=== PATIENT | male | born 1935 | race Hispanic/Latino ===

== ENCOUNTER → 2017-07-01 | Outpatient (CLI) | payer OTHER | END | disposition home or self-care (01) | LOC: OIH 10:10 | PROVIDERS: ATTEND Family Medicine | DX: J44.9 Chronic obstructive pulmonary disease, unspecified (principal); I10 Essential (primary) hypertension | CPT/HCPCS: 71046 ==

== ENCOUNTER → 2017-11-03 | Outpatient (CLI) | payer OTHER ==
[2017-11-03 11:26] LABS: INR 2.77 (0.85-1.15); PARTIAL THROMBOPLASTIN TIME 40.3 SEC (26.3-35.5); PROTHROMBIN TIME 28.5 SEC (9.6-11.6)
== END | disposition home or self-care (01) ==
LOC: LAB 10:23
PROVIDERS: ATTEND Family Medicine
DX: I13.0 Hypertensive heart and chronic kidney disease with heart failure and stage 1 through stage 4 chronic kidney disease, or unspecified chronic kidney disease (principal); I48.91 Unspecified atrial fibrillation; D68.9 Coagulation defect, unspecified
CPT/HCPCS: 36415; 85610; 85730

== ENCOUNTER 2018-03-08 20:18 | Emergency (ER) | payer OTHER ==
[~2018-03-08 20:18] MED LIST: ASPI-555 PO; DIGO125T87 PO; FOLI1TAB15 PO; FURO20TA4 PO; LOSA50TA25 PO; METO50TA18 PO; PRAV10TA39 PO; TAMS0.4C32 PO; WARF4TAB72 PO; WARF6TAB49 PO
[2018-03-08 20:44] LABS: BASOPHILS % (AUTO) 0.7 % (0.0-5.0); EOSINOPHILS % (AUTO) 1.8 % (0.0-8.0); HEMATOCRIT 36.5 % (42-54); LYMPHOCYTES % (AUTO) 38.3 % (21.0-51.0); MEAN CORPUSCULAR HEMOGLOBIN 31.3 pg (27.0-33.0); MEAN CORPUSCULAR HGB CONC 34.6 g/dL (32.0-36.0); MEAN CORPUSCULAR VOLUME 90.5 fL (79-99); NEUTROPHILS % (AUTO) 52.2 % (40.0-77.0); PLATELET COUNT (AUTO) 173 K/uL (130-400); RED BLOOD CELL COUNT(AUTO) 4.03 MIL/uL (4.50-6.20); RED CELL DISTRIBUTION WIDTH 14.7 % (11.0-15.5); WHITE BLOOD COUNT (AUTO) 6.2 K/uL (4.8-10.8)
[2018-03-08 20:53] LABS: CREATININE 1.6 mg/dL (0.5-1.5); POTASSIUM 3.7 mmol/L (3.5-5.1)
[2018-03-08 20:56] LABS: PARTIAL THROMBOPLASTIN TIME 36.6 SEC (26.3-35.5); PROTHROMBIN TIME 20.7 SEC (9.6-11.6)
[2018-03-08 21:03] LABS: ALBUMIN 4.2 g/dL (3.5-5.0); BILIRUBIN,TOTAL 0.8 mg/dL (0.2-1.0); TOTAL PROTEIN, SERUM 8.5 g/dL (6.0-8.3)
== END 2018-03-09 02:10 | disposition home or self-care (01) ==
LOC: EDH 20:18
DX: R07.9 Chest pain, unspecified (principal); I11.0 Hypertensive heart disease with heart failure; I50.9 Heart failure, unspecified; I48.91 Unspecified atrial fibrillation; E78.5 Hyperlipidemia, unspecified; Z98.890 Other specified postprocedural states
CPT/HCPCS: 36415; 71045; 80053; 82550; 83874; 84484; 85025; 85610; 85730; 93005; 94761

== ENCOUNTER 2018-04-06 23:26 | Emergency (ER) | payer OTHER | END 2018-04-07 00:48 | disposition home or self-care (01) | LOC: EDH 23:26 | DX: S61.411A Laceration without foreign body of right hand, initial encounter (principal); E78.5 Hyperlipidemia, unspecified; I48.91 Unspecified atrial fibrillation; I11.0 Hypertensive heart disease with heart failure; I50.9 Heart failure, unspecified; Z95.818 Presence of other cardiac implants and grafts; W26.8XXA Contact with other sharp object(s), not elsewhere classified, initial encounter; Y93.89 Activity, other specified; Y92.098 Other place in other non-institutional residence as the place of occurrence of the external cause; Y99.8 Other external cause status | CPT/HCPCS: 99282 ==

== ENCOUNTER 2018-04-07 09:33 | Emergency (ER) | payer OTHER ==
[2018-04-07] MEDS ORDERED: ACETAMINOPHEN 325 MG TAB ONE (10:01)
== END 2018-04-07 10:15 | disposition home or self-care (01) ==
LOC: EDH 09:33
DX: S61.411A Laceration without foreign body of right hand, initial encounter (principal); I48.91 Unspecified atrial fibrillation; I11.0 Hypertensive heart disease with heart failure; I50.9 Heart failure, unspecified; E78.5 Hyperlipidemia, unspecified; X58.XXXA Exposure to other specified factors, initial encounter; Y93.89 Activity, other specified; Y92.89 Other specified places as the place of occurrence of the external cause; Y99.8 Other external cause status
CPT/HCPCS: 99281

== ENCOUNTER 2018-04-08 08:40 | Emergency (ER) | payer OTHER | END 2018-04-08 09:07 | disposition home or self-care (01) | LOC: EDH 08:40 | DX: S61.411A Laceration without foreign body of right hand, initial encounter (principal); I48.91 Unspecified atrial fibrillation; I11.0 Hypertensive heart disease with heart failure; I50.9 Heart failure, unspecified; E78.5 Hyperlipidemia, unspecified; Z79.01 Long term (current) use of anticoagulants; W45.8XXA Other foreign body or object entering through skin, initial encounter; Y93.89 Activity, other specified; Y92.89 Other specified places as the place of occurrence of the external cause; Y99.8 Other external cause status ==

== ENCOUNTER 2018-06-17 04:54 | Observation (INO) | payer OTHER ==
[~2018-06-17] VITALS: Ht 157.5 cm; Wt 70.0 kg
[~2018-06-17 04:54] MED LIST changes: -LOSA50TA25 PO; +LOSA50TA64 PO
[2018-06-17] MEDS ORDERED: ONDANSETRON HCL 4 MG/2 ML VIAL ONE (05:25)
[2018-06-17 05:43] LABS: BASOPHILS % (AUTO) 0.9 % (0.0-5.0); EOSINOPHILS % (AUTO) 0.3 % (0.0-8.0); HEMATOCRIT 35.5 % (42-54); LYMPHOCYTES % (AUTO) 11.5 % (21.0-51.0); MEAN CORPUSCULAR HEMOGLOBIN 30.3 pg (27.0-33.0); MEAN CORPUSCULAR HGB CONC 33.4 g/dL (32.0-36.0); MEAN CORPUSCULAR VOLUME 90.7 fL (79-99); MONOCYTES % (AUTO) 4.4 % (3.0-13.0); NEUTROPHILS % (AUTO) 82.9 % (40.0-77.0); PLATELET COUNT (AUTO) 179 K/uL (130-400); RED BLOOD CELL COUNT(AUTO) 3.92 MIL/uL (4.50-6.20); RED CELL DISTRIBUTION WIDTH 15.2 % (11.0-15.5); WHITE BLOOD COUNT (AUTO) 9.8 K/uL (4.8-10.8)
[2018-06-17 05:53] LABS: CREATININE 1.5 mg/dL (0.5-1.5); POTASSIUM 4.6 mmol/L (3.5-5.1)
[2018-06-17 05:58] LABS: ALBUMIN 3.8 g/dL (3.5-5.0); BILIRUBIN,TOTAL 1.1 mg/dL (0.2-1.0); TOTAL PROTEIN, SERUM 7.6 g/dL (6.0-8.3)
[2018-06-17] MEDS ORDERED: SODIUM CHLORIDE 0.9% 500ML 500 ML IV ONE (06:21)
[2018-06-17] MEDS ORDERED: ACETAMINOPHEN 325 MG TAB ONE (06:21)
[2018-06-17 06:22] LABS: APPEARANCE,URINE SL CLOUDY (CLEAR); BILIRUBIN,URINE NEGATIVE (NEGATIVE); COLOR,URINE ORANGE (YELLOW); GLUCOSE, URINE (UA) NEGATIVE (NEGATIVE); KETONES,URINE NEGATIVE (NEGATIVE); LEUKOCYTE ESTERASE ,URINE MODERATE (NEGATIVE); NITRATE,URINE NEGATIVE (NEGATIVE); OCCULT BLOOD,URINE LARGE (NEGATIVE); PROTEIN,URINE 30 (NEGATIVE); UROBILINOGEN,URINE 0.2 mg/dL (0.2-1.0)
[2018-06-17] MEDS ORDERED: LEVOFLOXACIN 500 MG/D5W 100 ML 100 ML ONE (06:48)
[2018-06-17] MEDS ORDERED: CEFTRIAXONE SODIUM 1 GM ONE (06:48)
[2018-06-17 07:16] LABS: BACTERIA,URINE Many /HPF (None Seen)
[2018-06-17 07:17] LABS: SQUAMOUS EPITHELIAL CELL,UR 0-2 /HPF (0-2)
[2018-06-17] MEDS ORDERED: CLONIDINE HCL 0.1 MG TABLET PO PRN (08:15)
[2018-06-17] MEDS ORDERED: ZOLPIDEM TARTRATE 5 MG TAB PO PRN (08:15)
[2018-06-17] MEDS ORDERED: POTASSIUM CHLORIDE 20MEQ/100ML 100 ML IV PRN (08:15)
[2018-06-17] MEDS ORDERED: LACTULOSE 20 GM/30 ML UDCUP PO PRN (08:15)
[2018-06-17] MEDS ORDERED: DiphenhydrAMINE HCL 50 MG/ML VIAL IVP PRN (08:15)
[2018-06-17] MEDS ORDERED: SODIUM CHLORIDE 0.9% 1000ML 1,000 ML IV SCH (08:15)
[2018-06-17] MEDS ORDERED: DIPHENHYDRAMINE HCL 25 MG CAPSULE PO PRN (08:15)
[2018-06-17] MEDS ORDERED: NITROGLYCERIN 0.4 MG SL TAB SL PRN (08:15)
[2018-06-17] MEDS ORDERED: MAG HYDROX/AL HYDROX/SIMETH ES 30 ML SUSP UDCUP PO PRN (08:15)
[2018-06-17] MEDS ORDERED: POTASSIUM CHLORIDE 20 MEQ ERTAB PO PRN (08:15)
[2018-06-17] MEDS ORDERED: ACETAMINOPHEN 325 MG TAB PO PRN ×2 (08:15)
[2018-06-17] MEDS ORDERED: GLUCAGON 1MG KIT 1 MG ML IM PRN (08:15)
[2018-06-17] MEDS ORDERED: LIDOCAINE HCL-MPF 1% 2ML VIAL IJ PRN (08:15)
[2018-06-17] MEDS ORDERED: GUAIFENESIN-DM 200/20 MG 10 ML PO PRN (08:15)
[2018-06-17] MEDS ORDERED: POTASSIUM CHLORIDE 10% ELIXIR 20 MEQ/15 ML UDCUP PO PRN (08:15)
[2018-06-17] MEDS ORDERED: GUAIFENESIN SUGAR-FREE 100 MG/5 ML UDCUP PO PRN (08:15)
[2018-06-17] MEDS ORDERED: DEXTROSE 50%-WATER 50 ML DISP.SYRIN IV PRN (08:15)
[2018-06-17] MEDS ORDERED: ONDANSETRON HCL 4 MG/2 ML VIAL IVP PRN (08:15)
[2018-06-17 09:10] VITALS: BP 120/67
[2018-06-17] MEDS: AMIODARONE HCL 200 MG TABLET PO SCH (10:30)
[2018-06-17] MEDS: PANTOPRAZOLE SODIUM 40 MG TABLET.DR PO SCH (10:50)
[2018-06-17 11:00] VITALS: BP 88/50
[2018-06-17] MEDS: INSULIN R PO SSI SQ SCH ×3 (11:30→20:32)
[2018-06-17 15:30] VITALS: BP 104/56
[2018-06-17] MEDS: DIGOXIN 125 MCG TABLET PO SCH (17:12)
[2018-06-17 19:00] VITALS: BP 111/54
--- NOTE | 2018-06-17 20:00 | NUR ---
PM Shift Assessment Awake, alert, and oriented x3. Denies any pain or shortness of breath. Normal saline x1 liter completed as ordered. Instructed on use of call light for any assistance, verbalized understanding.
[2018-06-17] MEDS: APIXABAN 5 MG TABLET PO SCH (20:32)
[2018-06-18] VITALS (7 sets, daily range): BP systolic 113–138; BP diastolic 48–78
[2018-06-18 05:22] LABS: HEMATOCRIT 31.2 % (42-54); MEAN CORPUSCULAR HEMOGLOBIN 31.2 pg (27.0-33.0); MEAN CORPUSCULAR HGB CONC 34.6 g/dL (32.0-36.0); PLATELET COUNT (AUTO) 130 K/uL (130-400); RED BLOOD CELL COUNT(AUTO) 3.47 MIL/uL (4.50-6.20); RED CELL DISTRIBUTION WIDTH 15.5 % (11.0-15.5); WHITE BLOOD COUNT (AUTO) 7.8 K/uL (4.8-10.8)
[2018-06-18 05:33] LABS: BILIRUBIN,TOTAL 1.3 mg/dL (0.2-1.0); CREATININE 1.3 mg/dL (0.5-1.5); POTASSIUM 3.7 mmol/L (3.5-5.1); TOTAL PROTEIN, SERUM 6.6 g/dL (6.0-8.3)
[2018-06-18] MEDS: INSULIN R PO SSI SQ SCH ×4 (05:41→20:34)
[2018-06-18] MEDS: CEFTRIAXONE SODIUM 1 GM IVP SCH (10:07)
[2018-06-18] MEDS: TAMSULOSIN HCL 0.4 MG CAP.ER.24H PO SCH (10:08)
[2018-06-18] MEDS: APIXABAN 5 MG TABLET PO SCH ×2 (10:08→20:40)
[2018-06-18] MEDS: FUROSEMIDE 20 MG TABLET PO SCH (10:08)
[2018-06-18] MEDS: PANTOPRAZOLE SODIUM 40 MG TABLET.DR PO SCH (10:08)
[2018-06-18] MEDS: ASPIRIN 81 MG EC TAB PO SCH (10:08)
[2018-06-18] MEDS: CLOPIDOGREL BISULFATE 75 MG TAB PO SCH (10:08)
[2018-06-18] MEDS: AMIODARONE HCL 200 MG TABLET PO SCH (10:08)
[2018-06-18] MEDS: FOLIC ACID 1 MG TABLET PO SCH (10:08)
[2018-06-18] MEDS: LOSARTAN 50 MG TABLET PO SCH (10:09)
[2018-06-18] MEDS: DIGOXIN 125 MCG TABLET PO SCH (17:18)
--- NOTE | 2018-06-18 20:40 | NUR ---
[facility] PT CLAIMS OF PAIN UPON URINATION. DUE MEDS ADMINISTERED, TOLERATED WELL. KEPT RESTED AND COMFORTABLE. CALL LIGHT WITHIN REACH. WILL CONTINUE TO MONITOR. FAMILY IN ROOM WITH PT.
--- NOTE | 2018-06-19 02:00 | NUR ---
ROUNDS PT RESTING WELL, FAIRLY ASLEEP WITH RESPIRATIONS EVEN AND UNLABORED. NO NOTED DISTRESS. KEPT UNDISTURBED FOR NOW. WILL CONTINUE TO MONITOR.
[2018-06-19 04:00] VITALS: BP 114/59
--- NOTE | 2018-06-19 05:35 | NUR ---
ROUNDS PT RESTING WELL, FAIRLY ASLEEP. NO DISTRESS NOTED. KEPT RESTED AND COMFORTABLE. FOR MORE CARE.
[2018-06-19] MEDS: INSULIN R PO SSI SQ SCH (06:00)
[2018-06-19] MEDS: PANTOPRAZOLE SODIUM 40 MG TABLET.DR PO SCH (06:00)
[2018-06-19 08:00] VITALS: BP 142/75
[2018-06-19] MEDS: CEFTRIAXONE SODIUM 1 GM IVP SCH (09:21)
[2018-06-19] MEDS: FOLIC ACID 1 MG TABLET PO SCH (09:22)
[2018-06-19] MEDS: TAMSULOSIN HCL 0.4 MG CAP.ER.24H PO SCH (09:22)
[2018-06-19] MEDS: LOSARTAN 50 MG TABLET PO SCH (09:22)
[2018-06-19] MEDS: FUROSEMIDE 20 MG TABLET PO SCH (09:22)
[2018-06-19] MEDS: APIXABAN 5 MG TABLET PO SCH (09:22)
[2018-06-19] MEDS: AMIODARONE HCL 200 MG TABLET PO SCH (09:22)
[2018-06-19] MEDS: ASPIRIN 81 MG EC TAB PO SCH (09:22)
[2018-06-19] MEDS: CLOPIDOGREL BISULFATE 75 MG TAB PO SCH (09:22)
== END 2018-06-19 11:07 | disposition home or self-care (01) ==
LOC: EDH 04:54 → EDHIP 07:30 → 3AH 08:14
PROVIDERS: ADMIT Family Medicine; ATTEND Family Medicine
DX: N39.0 Urinary tract infection, site not specified (principal); R11.2 Nausea with vomiting, unspecified; K59.00 Constipation, unspecified; I48.91 Unspecified atrial fibrillation; I11.0 Hypertensive heart disease with heart failure; I50.9 Heart failure, unspecified; E78.5 Hyperlipidemia, unspecified; Z95.5 Presence of coronary angioplasty implant and graft
CPT/HCPCS: 36415 ×2; 71045; 80053 ×2; 81001; 82150; 82550; 82948 ×8; 83605; 83690; 84484; 85025; 85027; 87040 ×2; 87077; 87088; 87186; 87804 ×2; 93005; 96361; 96374; 96376; 99284; A4218 ×2; G0378 ×52; J0696 ×3; J1815; J1956; J2405; J7040

== ENCOUNTER 2018-12-03 00:34 | Emergency (ER) | payer OTHER ==
[~2018-12-03 00:34] MED LIST changes: -METO50TA18 PO; -PRAV10TA39 PO; -WARF4TAB72 PO; -WARF6TAB49 PO
[2018-12-03] MEDS ORDERED: FUROSEMIDE 10 MG/ML 4ML VIAL ONE (01:36)
[2018-12-03 01:37] LABS: BASOPHILS % (AUTO) 2.3 % (0.0-5.0); EOSINOPHILS % (AUTO) 0.8 % (0.0-8.0); LYMPHOCYTES % (AUTO) 20.9 % (21.0-51.0); MEAN CORPUSCULAR HEMOGLOBIN 32.1 pg (27.0-33.0); MEAN CORPUSCULAR VOLUME 94.5 fL (79-99); MONOCYTES % (AUTO) 10.4 % (3.0-13.0); NEUTROPHILS % (AUTO) 65.6 % (40.0-77.0); PLATELET COUNT (AUTO) 134 K/uL (130-400); RED BLOOD CELL COUNT(AUTO) 2.97 MIL/uL (4.50-6.20); RED CELL DISTRIBUTION WIDTH 15.1 % (11.0-15.5)
[2018-12-03 01:54] LABS: B-TYPE NATRIURETIC PEPTIDE 92 pg/mL (0-100); CREATININE 1.4 mg/dL (0.5-1.5); POTASSIUM 3.5 mmol/L (3.5-5.1)
== END 2018-12-03 02:45 | disposition home or self-care (01) ==
LOC: EDH 00:34
DX: R60.0 Localized edema (principal); I48.91 Unspecified atrial fibrillation; I11.0 Hypertensive heart disease with heart failure; I50.9 Heart failure, unspecified; E78.5 Hyperlipidemia, unspecified; Z87.891 Personal history of nicotine dependence
CPT/HCPCS: 36415; 71046; 80048; 83880; 84484; 85025; 93005; 96374; 99285; J1940

== ENCOUNTER → 2020-12-20 | Outpatient (CLI) | payer OTHER ==
[~2020-12-20] MED LIST changes: -ASPI-555 PO; +ASPI-556 PO; +DIGO125T71 PO; -DIGO125T87 PO
== END | disposition home or self-care (01) ==
LOC: SHCH 12:28
PROVIDERS: ATTEND Internal Medicine Cardiovascular Disease
DX: I10 Essential (primary) hypertension (principal)
CPT/HCPCS: 93306; 93356

== ENCOUNTER 2021-11-12 11:27 | Emergency (ER) | payer MEDICARE ==
[~2021-11-12] VITALS: Ht 160 cm; Wt 70.8 kg
[~2021-11-12 11:27] MED LIST changes: +APIX5TAB PO; -ASPI-556 PO; +ATOR40TA69 PO; -DIGO125T71 PO; -FURO20TA4 PO; +LISI20TA24 PO; +PANT40TA54 PO
[2021-11-12 11:51] LABS: BASOPHILS % (AUTO) 0.2 % (0.0-5.0); EOSINOPHILS % (AUTO) 0.4 % (0.0-8.0); HEMATOCRIT 39.1 % (42-54); LYMPHOCYTES % (AUTO) 32.3 % (21.0-51.0); MEAN CORPUSCULAR HEMOGLOBIN 30.2 pg (27.0-33.0); MEAN CORPUSCULAR VOLUME 88.9 fL (79-99); MONOCYTES % (AUTO) 6.5 % (3.0-13.0); NEUTROPHILS % (AUTO) 60.2 % (40.0-77.0); PLATELET COUNT (AUTO) 141 K/uL (130-400); RED CELL DISTRIBUTION WIDTH 12.4 % (11.0-15.5); WHITE BLOOD COUNT (AUTO) 5.1 K/uL (4.8-10.8)
[2021-11-12 12:00] LABS: CREATININE 1.4 mg/dL (0.5-1.5); POTASSIUM 4.5 mmol/L (3.5-5.1)
[2021-11-12] MEDS ORDERED: 0.9% NACL 500ML IV.SOLN 500 ML IV ONE (12:00)
[2021-11-12] MEDS ORDERED: ONDANSETRON 4MG INJ IVP ONE (12:00)
[2021-11-12] MEDS ORDERED: MECLIZINE HCL 12.5 MG TABLET PO ONE (12:00)
[2021-11-12] MEDS ORDERED: ACETAMINOPHEN 500 MG TABLET PO ONE (12:00)
[2021-11-12 12:04] LABS: ALBUMIN 4.1 g/dL (3.5-5.0); BILIRUBIN,TOTAL 1.1 mg/dL (0.2-1.0); TOTAL PROTEIN, SERUM 8.2 g/dL (6.0-8.3)
[2021-11-12] MEDS ORDERED: ONDA4TAB10 PO (14:42)
[2021-11-12] MEDS ORDERED: MECL-226 PO (14:42)
[2021-11-12 15:04] LABS: APPEARANCE,URINE CLEAR (CLEAR); BILIRUBIN,URINE NEGATIVE (NEGATIVE); COLOR,URINE YELLOW (YELLOW); GLUCOSE, URINE (UA) NEGATIVE (NEGATIVE); KETONES,URINE NEGATIVE (NEGATIVE); LEUKOCYTE ESTERASE ,URINE NEGATIVE (NEGATIVE); NITRATE,URINE NEGATIVE (NEGATIVE); OCCULT BLOOD,URINE NEGATIVE (NEGATIVE); PH,URINE 6.5 (5.0-8.0); PROTEIN,URINE NEGATIVE (NEGATIVE); UROBILINOGEN,URINE 0.2 mg/dL (0.2-1.0)
[2021-11-12 15:37] VITALS: BP 135/69
== END 2021-11-12 15:38 | disposition home or self-care (01) ==
LOC: EDH 11:27
DX: E86.9 Volume depletion, unspecified (principal); R42 Dizziness and giddiness; R51.9 Headache, unspecified; Z20.822 Contact with and (suspected) exposure to COVID-19; Z86.73 Personal history of transient ischemic attack (TIA), and cerebral infarction without residual deficits
CPT/HCPCS: 36415; 70450; 71045; 80053; 81003; 83690; 84484; 85025; 87635; 87804 ×2; 93005; 96374; 99285; C9803; J2405; J7040

== ENCOUNTER 2022-01-07 11:33 | Emergency (ER) | payer MEDICARE ==
[~2022-01-07] VITALS: Ht 157.5 cm; Wt 70.3 kg
[~2022-01-07 11:33] MED LIST changes: +MECL-226 PO; +ONDA4TAB10 PO
[2022-01-07] MEDS ORDERED: ACETAMINOPHEN 500 MG TABLET PO ONE (12:00)
[2022-01-07] MEDS ORDERED: 0.9%NACL 1000ML 1,000 ML IV ONE (12:00)
[2022-01-07 12:08] LABS: BASOPHILS % (AUTO) 0.2 % (0.0-5.0); EOSINOPHILS % (AUTO) 0.7 % (0.0-8.0); LYMPHOCYTES % (AUTO) 13.6 % (21.0-51.0); MEAN CORPUSCULAR HEMOGLOBIN 30.8 pg (27.0-33.0); MEAN CORPUSCULAR HGB CONC 34.3 g/dL (32.0-36.0); MEAN CORPUSCULAR VOLUME 89.7 fL (79-99); MONOCYTES % (AUTO) 10.1 % (3.0-13.0); PLATELET COUNT (AUTO) 136 K/uL (130-400); RED CELL DISTRIBUTION WIDTH 13.1 % (11.0-15.5); WHITE BLOOD COUNT (AUTO) 5.7 K/uL (4.8-10.8)
[2022-01-07 12:15] LABS: CREATININE 1.3 mg/dL (0.5-1.5); POTASSIUM 4.4 mmol/L (3.5-5.1)
[2022-01-07 12:19] LABS: TOTAL PROTEIN, SERUM 7.7 g/dL (6.0-8.3)
[2022-01-07 12:41] LABS: APPEARANCE,URINE CLEAR (CLEAR); BILIRUBIN,URINE NEGATIVE (NEGATIVE); COLOR,URINE YELLOW (YELLOW); GLUCOSE, URINE (UA) NEGATIVE (NEGATIVE); KETONES,URINE NEGATIVE (NEGATIVE); LEUKOCYTE ESTERASE ,URINE NEGATIVE (NEGATIVE); NITRATE,URINE NEGATIVE (NEGATIVE); OCCULT BLOOD,URINE SMALL (NEGATIVE); PH,URINE 6.5 (5.0-8.0); PROTEIN,URINE NEGATIVE (NEGATIVE); UROBILINOGEN,URINE 0.2 mg/dL (0.2-1.0)
[2022-01-07 12:51] LABS: BACTERIA,URINE Rare /HPF (None Seen); SQUAMOUS EPITHELIAL CELL,UR Rare /HPF (0-2); WBC,URINE 0-1 /HPF (0-1)
[2022-01-07] MEDS ORDERED: ACET-66 PO (14:18)
[2022-01-07] MEDS ORDERED: GUAIF10 PO (14:18)
[2022-01-07 14:30] VITALS: BP 112/76
== END 2022-01-07 14:30 | disposition home or self-care (01) ==
LOC: EDH 11:33
DX: U07.1 COVID-19 (principal); E78.00 Pure hypercholesterolemia, unspecified; I11.9 Hypertensive heart disease without heart failure; I25.10 Atherosclerotic heart disease of native coronary artery without angina pectoris; R05.9 Cough, unspecified; E86.0 Dehydration; Z79.01 Long term (current) use of anticoagulants; Z79.899 Other long term (current) drug therapy; Z95.1 Presence of aortocoronary bypass graft; Z95.5 Presence of coronary angioplasty implant and graft
CPT/HCPCS: 99285; 84484; 80053; 85025; 87040 ×2; 87880; 87804 ×2; 83605; 81001; 36415; 87635; 71045; 96360; 96361; 93005; C9803; J7030

== ENCOUNTER 2022-06-15 10:15 | Emergency (ER) | payer MEDICARE ==
[~2022-06-15] VITALS: Ht 160 cm; Wt 70.8 kg
[~2022-06-15 10:15] MED LIST changes: +ACET-66 PO; +AMIO200T44 PO; +ASPI-1005 PO; +ERGO500093 PO; +FURO20TA4 PO; +GUAIF10 PO
[2022-06-15 10:25] VITALS: BP 147/68
[2022-06-16] MEDS ORDERED: FAMO20TA8 PO (10:38)
== END 2022-06-15 11:04 | disposition left against medical advice (07) ==
LOC: EDH 10:15
DX: J02.9 Acute pharyngitis, unspecified (principal); Z53.21 Procedure and treatment not carried out due to patient leaving prior to being seen by health care provider

== ENCOUNTER 2022-06-16 06:33 | Emergency (ER) | payer MEDICARE ==
[~2022-06-16] VITALS: Ht 160 cm; Wt 76.7 kg
[2022-06-16 07:17] LABS: BASOPHILS % (AUTO) 0.4 % (0.0-5.0); EOSINOPHILS % (AUTO) 1.7 % (0.0-8.0); MEAN CORPUSCULAR HEMOGLOBIN 30.1 pg (27.0-33.0); MEAN CORPUSCULAR HGB CONC 33.4 g/dL (32.0-36.0); MONOCYTES % (AUTO) 7.2 % (3.0-13.0); NEUTROPHILS % (AUTO) 72.5 % (40.0-77.0); PLATELET COUNT (AUTO) 144 K/uL (130-400); RED BLOOD CELL COUNT(AUTO) 3.89 MIL/uL (4.50-6.20); RED CELL DISTRIBUTION WIDTH 13.6 % (11.0-15.5); WHITE BLOOD COUNT (AUTO) 4.7 K/uL (4.8-10.8)
[2022-06-16 08:19] LABS: ALBUMIN 3.6 g/dL (3.5-5.0); CREATININE 1.4 mg/dL (0.5-1.5); POTASSIUM 4.2 mmol/L (3.5-5.1); TOTAL PROTEIN, SERUM 7.4 g/dL (6.0-8.3)
[2022-06-16 08:40] LABS: APPEARANCE,URINE CLEAR (CLEAR); BILIRUBIN,URINE NEGATIVE (NEGATIVE); COLOR,URINE LIGHT-YELLOW (YELLOW); GLUCOSE, URINE (UA) NEGATIVE (NEGATIVE); KETONES,URINE NEGATIVE (NEGATIVE); LEUKOCYTE ESTERASE ,URINE NEGATIVE Leu/uL (NEGATIVE); NITRATE,URINE NEGATIVE (NEGATIVE); OCCULT BLOOD,URINE NEGATIVE (NEGATIVE); PROTEIN,URINE NEGATIVE (NEGATIVE); UROBILINOGEN,URINE 0.2 mg/dL (0.2-1.0)
[2022-06-16] MEDS ORDERED: FAMO20TA8 PO (10:38)
[2022-06-16 10:58] VITALS: BP 156/81
== END 2022-06-16 10:58 | disposition home or self-care (01) ==
LOC: EDH 06:33
DX: K57.90 Diverticulosis of intestine, part unspecified, without perforation or abscess without bleeding (principal); K21.9 Gastro-esophageal reflux disease without esophagitis; E78.00 Pure hypercholesterolemia, unspecified; I10 Essential (primary) hypertension; Z79.01 Long term (current) use of anticoagulants; Z79.82 Long term (current) use of aspirin; Z79.899 Other long term (current) drug therapy; Z95.1 Presence of aortocoronary bypass graft; Z95.5 Presence of coronary angioplasty implant and graft
CPT/HCPCS: 36415; 74176; 80053; 81003; 83690; 85025

== ENCOUNTER → 2022-10-26 | Outpatient (CLI) | payer OTHER ==
[~2022-10-26] MED LIST changes: -ACET-66 PO; +AMIO100T PO; -AMIO200T44 PO; -APIX5TAB PO; +FAMO20TA8 PO; +FOLI1 PO; -FOLI1TAB15 PO; -GUAIF10 PO; -LOSA50TA64 PO; -MECL-226 PO; +METO25TA6 PO; -PANT40TA54 PO; +WARF3TAB59 PO
[2022-10-26 12:25] LABS: CREATININE 1.5 mg/dL (0.5-1.5); POTASSIUM 4.6 mmol/L (3.5-5.1)
== END | disposition home or self-care (01) ==
LOC: LAB 08:45
PROVIDERS: ATTEND Internal Medicine Cardiovascular Disease
DX: I48.91 Unspecified atrial fibrillation (principal); I49.5 Sick sinus syndrome
CPT/HCPCS: 36415; 80048; 83880

== ENCOUNTER → 2022-11-05 | Outpatient (CLI) | payer OTHER ==
[2022-11-05 16:29] LABS: CREATININE 1.3 mg/dL (0.5-1.5)
== END | disposition home or self-care (01) ==
LOC: LAB 13:26
PROVIDERS: ATTEND Internal Medicine Cardiovascular Disease
DX: I50.22 Chronic systolic (congestive) heart failure (principal); I48.0 Paroxysmal atrial fibrillation
CPT/HCPCS: 36415; 80048; 83880

== ENCOUNTER 2023-01-30 15:00 | Emergency (ER) | payer OTHER ==
[~2023-01-30] VITALS: Ht 154.9 cm; Wt 70.3 kg
[2023-01-30 18:12] VITALS: BP 144/76; PULSE 95; RESP 18; O2SAT 98
[2023-01-30] MEDS ORDERED: ACETAMINOPHEN 325 MG TAB PO ONE (18:30)
== END 2023-01-30 18:22 | disposition home or self-care (01) ==
LOC: EDH 15:00
DX: S46.911A Strain of unspecified muscle, fascia and tendon at shoulder and upper arm level, right arm, initial encounter (principal); E78.00 Pure hypercholesterolemia, unspecified; I10 Essential (primary) hypertension; Z79.01 Long term (current) use of anticoagulants; Z79.82 Long term (current) use of aspirin; Z79.899 Other long term (current) drug therapy; Z95.1 Presence of aortocoronary bypass graft; Z95.2 Presence of prosthetic heart valve; Z95.5 Presence of coronary angioplasty implant and graft; W18.39XA Other fall on same level, initial encounter; Y93.89 Activity, other specified; Y92.89 Other specified places as the place of occurrence of the external cause; Y99.8 Other external cause status
CPT/HCPCS: 70450; 73030

== ENCOUNTER → 2023-05-20 | Outpatient (CLI) | payer OTHER ==
[~2023-05-20] MED LIST changes: -METO25TA6 PO
[2023-05-20 12:16] LABS: CREATININE 1.3 mg/dL (0.5-1.5)
== END | disposition home or self-care (01) ==
LOC: LAB 09:03
PROVIDERS: ATTEND Internal Medicine Cardiovascular Disease
DX: I48.0 Paroxysmal atrial fibrillation (principal); I50.22 Chronic systolic (congestive) heart failure
CPT/HCPCS: 36415; 80048; 83880

== ENCOUNTER → 2023-06-10 | Outpatient (CLI) | payer OTHER ==
[2023-06-10 13:05] LABS: CREATININE 1.5 mg/dL (0.5-1.5); POTASSIUM 4.4 mmol/L (3.5-5.1)
== END | disposition home or self-care (01) ==
LOC: LAB 10:26
PROVIDERS: ATTEND Internal Medicine Cardiovascular Disease
DX: I48.0 Paroxysmal atrial fibrillation (principal); I50.22 Chronic systolic (congestive) heart failure; R60.9 Edema, unspecified; D68.59 Other primary thrombophilia; Z95.2 Presence of prosthetic heart valve
CPT/HCPCS: 36415; 80048; 83735; 83880